=== PATIENT | female | born 1985 | race Caucasian/White ===

== ENCOUNTER 2017-01-05 20:45 | Observation (INO) | payer MEDICAID, SELFPAY ==
[~2017-01-05] VITALS: Ht 154.9 cm; Wt 71.7 kg
[~2017-01-05 20:45] MED LIST: NOCURR
[2017-01-06] MEDS ORDERED: PREN1TAB80 PO (00:31)
[2017-01-06 00:37] VITALS: BP 109/62
[2017-01-06] MEDS ORDERED: ABAC1TAB15 PO (07:29)
== END 2017-01-06 01:10 | disposition home or self-care (01) ==
LOC: 4S 20:45
PROVIDERS: ADMIT Obstetrics & Gynecology; ATTEND Obstetrics & Gynecology
DX: O62.9 Abnormality of forces of labor, unspecified (principal); O26.893 Other specified pregnancy related conditions, third trimester; R10.9 Unspecified abdominal pain; M54.5 Low back pain; Z3A.39 39 weeks gestation of pregnancy
CPT/HCPCS: 59025; 80307 ×8; G0378

== ENCOUNTER 2017-01-06 06:45 | Inpatient (IN) | payer MEDICAID ==
[~2017-01-06] VITALS: Ht 154.9 cm; Wt 71.7 kg
[~2017-01-06 06:45] MED LIST changes: +PREN1TAB80 PO
[2017-01-06] MEDS ORDERED: RINGERS SOLUTION,LACTATED 1,000 ML IV ONE ×2 (07:17→11:26)
[2017-01-06 07:22] VITALS: BP 129/86
[2017-01-06] MEDS ORDERED: ABAC1TAB15 PO (07:29)
[2017-01-06] MEDS ORDERED: METOCLOPRAMIDE HCL 5 MG/ML 2 ML VIAL IVP ONE (07:30)
[2017-01-06] MEDS ORDERED: CITRIC ACID/SODIUM CITRATE 30 ML SOLUTION UDCUP PO ONE (07:30)
[2017-01-06] MEDS ORDERED: [UNRECOGNIZED DRUG - OTHER] ED PRN (07:32)
[2017-01-06] MEDS ORDERED: HYDROMORPHONE HCL ED PRN (07:32)
[2017-01-06] MEDS ORDERED: BUPIVACAINE HCL ED PRN (07:32)
[2017-01-06] MEDS ORDERED: FentaNYL CITRATE-PF 100 MCG/2 ML VIAL ONE (07:45)
[2017-01-06] MEDS ORDERED: PROMETHAZINE HCL 12.5 MG in SODIUM CHLORIDE 0.9% 50 ML IV PRN ×2 (07:45→09:00)
[2017-01-06] MEDS ORDERED: ONDANSETRON HCL 4 MG/2 ML VIAL IVP PRN ×2 (07:45→09:00)
[2017-01-06] MEDS ORDERED: DiphenhydrAMINE HCL 50 MG/ML VIAL IVP PRN ×2 (07:45→09:00)
[2017-01-06] MEDS ORDERED: DiphenhydrAMINE HCL 50 MG/ML VIAL IM PRN (07:45)
[2017-01-06] MEDS ORDERED: PROMETHAZINE HCL 25 MG/ML VIAL IM PRN (07:45)
[2017-01-06] MEDS ORDERED: NALBUPHINE HCL 10 MG/ML VIAL IVP PRN ×3 (07:45→09:00)
[2017-01-06] MEDS ORDERED: MORPHINE SULFATE/PF 1 MG/ML 10 ML AMP ONE (07:45)
[2017-01-06 08:00] LABS: BASOPHILS % (AUTO) 0.4 % (0.0-2.0); HEMATOCRIT 30.3 % (36-46); HEMOGLOBIN 10.3 g/dL (12.0-16.0); LYMPHOCYTES # (AUTO) 1.4 K/uL (1.0-4.8); LYMPHOCYTES % (AUTO) 22.1 % (22.0-44.0); MEAN CORPUSCULAR HEMOGLOBIN 29.2 pg (26.0-34.0); MEAN CORPUSCULAR VOLUME 86 fL (80-100); MONOCYTES # (AUTO) 0.4 K/uL (0.1-1.0); MONOCYTES % (AUTO) 6.1 % (2.0-9.0); NEUTROPHILS # (AUTO) 4.5 K/uL (1.8-7.7); NEUTROPHILS % (AUTO) 70.4 % (40.0-70.0); RED BLOOD CELL COUNT(AUTO) 3.53 MIL/uL (4.00-5.20); RED CELL DISTRIBUTION WIDTH 16.6 % (11.5-14.5); WHITE BLOOD COUNT (AUTO) 6.4 K/uL (4.5-11.0)
[2017-01-06] MEDS ORDERED: FentaNYL/BUPIV 0.125%/NS/PF 200 ML ED ONE (08:30)
[2017-01-06] MEDS ORDERED: LIDOCAINE HCL/PF 2% 5 ML VIAL ONE ×2 (08:30→10:34)
[2017-01-06] MEDS ORDERED: BUPIVACAINE HCL/PF 0.5% 10 ML VIAL ONE (08:31)
[2017-01-06] MEDS ORDERED: OXYTOCIN 30 UNITS/LACT RINGERS 500 ML IV ONE ×2 (08:35→09:50)
[2017-01-06] MEDS ORDERED: *NON-FORMULARY MED [ENTER DRUG, DOSE, FREQ IN COMMENTS] CLINICAL ONE ×2 (08:45)
[2017-01-06] MEDS ORDERED: FentaNYL/BUPIV 0.125%/NS/PF 200 ML ED PRN (08:52)
[2017-01-06] MEDS ORDERED: AMPICILLIN SODIUM 2 GM/NS 100 ML IV ONE ×2 (09:13→09:15)
[2017-01-06] MEDS: ABACAVIR SULFATE 300 MG TABLET PO SCH (09:18)
[2017-01-06] MEDS: DOLUTEGRAVIR SODIUM 50 MG TABLET PO SCH (09:18)
[2017-01-06] MEDS ORDERED: OXYTOCIN 30 UNITS/LACT RINGERS 500 ML IV PRN (09:50)
[2017-01-06] MEDS ORDERED: RINGERS SOLUTION,LACTATED 1,000 ML IV SCH (09:50)
[2017-01-06] MEDS ORDERED: METOCLOPRAMIDE HCL 5 MG/ML 2 ML VIAL IVP PRN (10:00)
[2017-01-06] MEDS ORDERED: CITRIC ACID/SODIUM CITRATE 30 ML SOLUTION UDCUP PO PRN (10:00)
[2017-01-06] MEDS ORDERED: DEXTROSE 5%-WATER 50 ML IV ONE ×2 (10:00→10:15)
[2017-01-06] MEDS ORDERED: DEXTROSE 5%-WATER 50 ML IV SCH (11:00)
[2017-01-06] MEDS ORDERED: OxyCODONE HCL/ACETAMINOPHEN 5-325 MG TABLET PO PRN ×2 (11:30)
[2017-01-06] MEDS ORDERED: LANOLIN 7 GM OINTMENT TP PRN (11:30)
[2017-01-06] MEDS ORDERED: BENZOCAINE 20%/MENTHOL 56 GM SPRAY CANISTER TP PRN (11:30)
[2017-01-06] MEDS ORDERED: GLYCERIN/WITCH HAZEL LEAF 40 PADS JAR TP PRN (11:30)
[2017-01-06] MEDS ORDERED: MEASLES/MUMPS/RUBELLA VACCINE, LIVE 0.5 ML/VIAL SQ ONE (11:30)
[2017-01-06] MEDS: IBUPROFEN 600 MG TABLET PO PRN ×2 (12:22→21:20)
[2017-01-06] MEDS ORDERED: AMPICILLIN SODIUM 1 GM/NS 50 ML IV SCH (13:30)
[2017-01-06] MEDS ORDERED: OXYGEN THERAPY IH SCH (20:00)
[2017-01-06] MEDS: MAGNESIUM HYDROXIDE SUSPENSION 30 ML UDCUP PO SCH (21:00)
[2017-01-07] MEDS ORDERED: PNEUMOCOCCAL VACCINE POLYVALENT 0.5 ML VIAL [PPSV23] IM ONE (02:45)
[2017-01-07 06:47] LABS: BASOPHILS % (AUTO) 0.3 % (0.0-2.0); EOSINOPHILS % (AUTO) 0.4 % (1.0-6.0); HEMATOCRIT 22.8 % (36-46); HEMOGLOBIN 7.6 g/dL (12.0-16.0); LYMPHOCYTES # (AUTO) 0.9 K/uL (1.0-4.8); LYMPHOCYTES % (AUTO) 12.3 % (22.0-44.0); MEAN CORPUSCULAR HEMOGLOBIN 28.9 pg (26.0-34.0); MEAN CORPUSCULAR HGB CONC 33.4 G/dL (31.0-37.0); MEAN CORPUSCULAR VOLUME 87 fL (80-100); MONOCYTES # (AUTO) 0.5 K/uL (0.1-1.0); MONOCYTES % (AUTO) 6.7 % (2.0-9.0); NEUTROPHILS # (AUTO) 6.2 K/uL (1.8-7.7); NEUTROPHILS % (AUTO) 80.3 % (40.0-70.0); RED BLOOD CELL COUNT(AUTO) 2.63 MIL/uL (4.00-5.20); RED CELL DISTRIBUTION WIDTH 17.1 % (11.5-14.5); WHITE BLOOD COUNT (AUTO) 7.7 K/uL (4.5-11.0)
[2017-01-07 07:04] LABS: RBC MORPHOLOGY COMMENT ABNORMAL RBC MORPH
[2017-01-07] MEDS: IBUPROFEN 600 MG TABLET PO PRN ×2 (07:41→21:48)
[2017-01-07] MEDS ORDERED: SOD FERRIC GLUC COMPLX/SUCROSE 125 MG in SODIUM CHLORIDE 0.9% 100 ML IV ONE (07:45)
[2017-01-07] MEDS: MAGNESIUM HYDROXIDE SUSPENSION 30 ML UDCUP PO SCH ×2 (07:57→21:47)
[2017-01-07] MEDS: SOD FERRIC GLUC COMPLX/SUCROSE 125 MG in SODIUM CHLORIDE 0.9% 100 ML IV SCH (08:25)
[2017-01-07] MEDS: DOLUTEGRAVIR SODIUM 50 MG TABLET PO SCH (09:25)
[2017-01-07] MEDS: ABACAVIR SULFATE 300 MG TABLET PO SCH (09:25)
[2017-01-08] MEDS: IBUPROFEN 600 MG TABLET PO PRN (06:44)
[2017-01-08] MEDS: SOD FERRIC GLUC COMPLX/SUCROSE 125 MG in SODIUM CHLORIDE 0.9% 100 ML IV SCH (08:08)
[2017-01-08 08:31] LABS: BASOPHILS % (AUTO) 0.3 % (0.0-2.0); EOSINOPHILS % (AUTO) 1.7 % (1.0-6.0); HEMOGLOBIN 7.1 g/dL (12.0-16.0); LYMPHOCYTES % (AUTO) 18.3 % (22.0-44.0); MEAN CORPUSCULAR HEMOGLOBIN 29.1 pg (26.0-34.0); MEAN CORPUSCULAR HGB CONC 33.6 G/dL (31.0-37.0); MEAN CORPUSCULAR VOLUME 87 fL (80-100); MONOCYTES # (AUTO) 0.4 K/uL (0.1-1.0); MONOCYTES % (AUTO) 6.9 % (2.0-9.0); NEUTROPHILS % (AUTO) 72.8 % (40.0-70.0); RED BLOOD CELL COUNT(AUTO) 2.42 MIL/uL (4.00-5.20); RED CELL DISTRIBUTION WIDTH 16.9 % (11.5-14.5); WHITE BLOOD COUNT (AUTO) 5.6 K/uL (4.5-11.0)
[2017-01-08] MEDS: MAGNESIUM HYDROXIDE SUSPENSION 30 ML UDCUP PO SCH (09:02)
[2017-01-08] MEDS: DOLUTEGRAVIR SODIUM 50 MG TABLET PO SCH (09:03)
[2017-01-08] MEDS: ABACAVIR SULFATE 300 MG TABLET PO SCH (09:05)
[2017-01-08] MEDS ORDERED: IBUP-1547 PO (12:36)
[2017-01-08] MEDS ORDERED: DSS100 PO (12:36)
== END 2017-01-08 14:45 | disposition home or self-care (01) | DRG 560 ==
LOC: OBSVTOIN 06:45 → 4S 06:45
PROVIDERS: ADMIT Obstetrics & Gynecology; ATTEND Obstetrics & Gynecology
PROC: 10E0XZZ Delivery of Products of Conception, External Approach (ICD-10-PCS; principal; 2017-01-06)
PROC: 3E0S3CZ (ICD-10-PCS; 2017-01-06)
PROC: 00HU33Z Insertion of Infusion Device into Spinal Canal, Percutaneous Approach (ICD-10-PCS; 2017-01-06)
PROC: 10907ZC Drainage of Amniotic Fluid, Therapeutic from Products of Conception, Via Natural or Artificial Opening (ICD-10-PCS; 2017-01-06)
DX: O99.824 Streptococcus B carrier state complicating childbirth (principal); O98.72 Human immunodeficiency virus [HIV] disease complicating childbirth; Z37.0 Single live birth; Z3A.39 39 weeks gestation of pregnancy
CPT/HCPCS: 80307; 86701; 86702; 86850; 86900; 86901; 86920; 90471; J0290; J2405; J2590; J2765; J2916; J3010; J3490; J7050; J7060; J7120